=== PATIENT | female | born 1965 | race Caucasian/White ===

== ENCOUNTER 2022-04-20 18:28 | Emergency (ER) | payer OTHER ==
[~2022-04-20] VITALS: Ht 162.6 cm; Wt 126.8 kg
[2022-04-20] VITALS (12 sets, daily range): BP systolic 102–146; BP diastolic 55–85
[~2022-04-20 18:28] MED LIST: B121000 MC1 PO; BACLOFEN20 MG PO; CETIRIZ/PSE1 TAB PO; D3 PO; DAILY FIBER; GLIPIZIDE ER5 M1 PO; HYZAAR1 TA1; HYZAAR1 TA1 PO; LANSOPRAZOLE30 M2 PO; METFORMIN500 MG PO; MOBIC7.5 M1 PO; OMEPRAZOLE20 MG PO; PRILOSEC40 MG PO; ZINC50 M1 PO
[2022-04-20] MEDS ORDERED: ADVAIR DISK1 INH (19:08)
[2022-04-20] MEDS ORDERED: WELLBUTRIN150 M1 PO (19:08)
[2022-04-20 19:09] LABS: HEMOGLOBIN 11.8 g/dl (12.0-16.0); IMMATURE GRANULOCYTES 0.2 % (0.0-5.0); MEAN CORPUSCULAR HGB 23.4 pG CALC (26.0-32.0); MEAN CORPUSCULAR HGB CONC 31.9 g/dL CAL (32.0-36.0); NEUT# 5.53 thou/uL (2.00-7.15); RED BLOOD COUNT 5.05 mill/uL (4.20-5.60); RED CELL DISTRI WIDTH 16.1 % (11.5-15.5)
[2022-04-20] MEDS ORDERED: ALBUTEROL SUL0.083 % IN (19:09)
[2022-04-20 19:10] LABS: MEAN CELL VOLUME 73.3 fL CALC (80.0-100.0)
[2022-04-20] MEDS ORDERED: TRULICITY0.75 MG/0. IN (19:10)
[2022-04-20 19:22] LABS: ALBUMIN 4.6 g/dL (3.2-5.0); ALKALINE PHOSPHATASE 76 u/l (38-126); ANION GAP 17 (6-22 (CALC)); BILIRUBIN, TOTAL 0.5 mg/dL (0.0-1.4); BUN 10 mg/dL (7-17); BUN/CREATININE RATIO 12 (12-20 (CALC)); CARBON DIOXIDE 25 mmol/l (22-30); CHLORIDE 99 mmol/l (95-108); CREATININE 0.8 mg/dL (0.5-1.0); GFR FOR AFR.AMER. > 60 ML/MIN (>=60 (CALC)); GFR OTHER RACES > 60 ML/MIN (>=60 (CALC)); POTASSIUM 3.8 mmol/l (3.5-5.1); SGOT/AST 63 u/l (14-36); SODIUM 137 mmol/l (137-146); TOTAL PROTEIN 7.2 g/dL (6.3-8.2)
[2022-04-21 00:01] VITALS: BP 141/89
[2022-04-21 00:19] VITALS: BP 141/89
== END 2022-04-21 00:21 | disposition home or self-care (01) | DRG 313 ==
LOC: ED 18:28
PROVIDERS: Family Medicine
DX: R07.89 Other chest pain (principal); I10 Essential (primary) hypertension; E11.9 Type 2 diabetes mellitus without complications; J45.909 Unspecified asthma, uncomplicated; M79.7 Fibromyalgia; Z79.84 Long term (current) use of oral hypoglycemic drugs; Z20.822 Contact with and (suspected) exposure to COVID-19

== ENCOUNTER 2022-12-11 08:43 | Day surgery (SDC) | payer OTHER ==
[~2022-12-11 08:43] MED LIST changes: +ADVAIR DISK1 INH; +ADVANCED FIBER COMPL PO; +ALBUTEROL SUL0.083 % IN; +ALLERGY RE50 MCG/ACT; +B121000 MC1; +PROBIOTI2; +TRULICITY0.75 MG/0. IN; +WELLBUTRIN150 M1 PO; +ZYRTEC10 MG PO
[2022-12-11 11:31] VITALS: BP 125/69
== END 2022-12-11 11:50 | disposition home or self-care (01) | DRG 951 ==
LOC: ENDO 08:43 → ORM 10:15 → ENDO 10:15
PROVIDERS: ATTEND Surgery
PROC: 0DBN8ZX Excision of Sigmoid Colon, Via Natural or Artificial Opening Endoscopic, Diagnostic (ICD-10-PCS; principal; 2022-12-11)
PROC: 0DBL8ZX Excision of Transverse Colon, Via Natural or Artificial Opening Endoscopic, Diagnostic (ICD-10-PCS; 2022-12-11)
PROC: 0DB68ZX Excision of Stomach, Via Natural or Artificial Opening Endoscopic, Diagnostic (ICD-10-PCS; 2022-12-11)
DX: Z12.11 Encounter for screening for malignant neoplasm of colon (principal); D12.5 Benign neoplasm of sigmoid colon; D12.3 Benign neoplasm of transverse colon; K57.30 Diverticulosis of large intestine without perforation or abscess without bleeding; K64.8 Other hemorrhoids; K31.7 Polyp of stomach and duodenum; K44.9 Diaphragmatic hernia without obstruction or gangrene; K21.9 Gastro-esophageal reflux disease without esophagitis; I10 Essential (primary) hypertension; E11.9 Type 2 diabetes mellitus without complications; J45.909 Unspecified asthma, uncomplicated; M79.7 Fibromyalgia; Z79.85 Long-term (current) use of injectable non-insulin antidiabetic drugs; Z86.010 Personal history of colon polyps; Z79.84 Long term (current) use of oral hypoglycemic drugs

== ENCOUNTER 2023-07-06 20:33 | Emergency (ER) | payer OTHER ==
[2023-07-06] VITALS (20 sets, daily range): BP systolic 109–181; BP diastolic 56–86
[~2023-07-06] VITALS: Ht 162.6 cm; Wt 125.0 kg
[2023-07-06] MEDS ORDERED: ONDANSETRON HCl 4 MG/2 ML SDV IV ONE (21:55)
[2023-07-06 21:59] LABS: BASO% 0.2 % (0-3); HEMATOCRIT 39.4 % (37.0-47.0); IMMATURE GRANULOCYTES 0.6 % (0.0-5.0); LYMPH% 18.6 % (15-41); MEAN CELL VOLUME 76.7 fL CALC (80.0-100.0); MEAN CORPUSCULAR HGB 23.3 pG CALC (26.0-32.0); MEAN CORPUSCULAR HGB CONC 30.5 g/dL CAL (32.0-36.0); MONO% 7.8 % (2-13); NEUT# 7.68 thou/uL (2.00-7.15); NEUT% 70.8 % (42-76); RED BLOOD COUNT 5.14 mill/uL (4.20-5.60); RED CELL DISTRI WIDTH 15.6 % (11.5-15.5)
[2023-07-06 22:04] LABS: ALKALINE PHOSPHATASE 55 u/l (38-126); ANION GAP 16 (6-22 (CALC)); BUN 13 mg/dL (7-17); BUN/CREATININE RATIO 16 (12-20 (CALC)); CARBON DIOXIDE 26 mmol/l (22-30); CHLORIDE 100 mmol/l (95-108); CREATININE 0.8 mg/dL (0.5-1.0); ETHYL ALCOHOL 0 mg/dl (0-30); GFR FOR AFR.AMER. > 60 ML/MIN (>=60 (CALC)); GFR OTHER RACES > 60 ML/MIN (>=60 (CALC)); POTASSIUM 3.9 mmol/l (3.5-5.1); SGOT/AST 61 u/l (14-36); SODIUM 137 mmol/l (137-146); TOTAL PROTEIN 6.9 g/dL (6.3-8.2)
[2023-07-06 22:08] LABS: BILIRUBIN, TOTAL 0.8 mg/dL (0.02-1.3)
[2023-07-07] MEDS ORDERED: ZOFRAN4 MG/TAB PO (00:39)
[2023-07-07] MEDS ORDERED: TRAMADOL HYDROC50 M1 PO (00:39)
[2023-07-07 01:00] VITALS: BP 130/72
[2023-07-07] MEDS ORDERED: traMADol HCL 50 MG/TAB PO ONE (01:05)
== END 2023-07-07 02:30 | disposition home or self-care (01) | DRG 392 ==
LOC: ED 20:33
PROVIDERS: Emergency Medicine
DX: K52.9 Noninfective gastroenteritis and colitis, unspecified (principal); S92.322A Displaced fracture of second metatarsal bone, left foot, initial encounter for closed fracture; S92.332A Displaced fracture of third metatarsal bone, left foot, initial encounter for closed fracture; S92.342A Displaced fracture of fourth metatarsal bone, left foot, initial encounter for closed fracture; I10 Essential (primary) hypertension; E11.9 Type 2 diabetes mellitus without complications; J45.909 Unspecified asthma, uncomplicated; M79.7 Fibromyalgia; W19.XXXA Unspecified fall, initial encounter; Z79.84 Long term (current) use of oral hypoglycemic drugs; Z87.440 Personal history of urinary (tract) infections